=== PATIENT | female | born 1980 | race African-American/Black ===

== ENCOUNTER 2018-03-05 16:56 | Emergency (ER) | payer OTHER ==
[~2018-03-05] VITALS: Ht 157.5 cm; Wt 80.9 kg
[~2018-03-05 16:56] MED LIST: PRENTAB26 PO
[2018-03-05 17:20] VITALS: TEMP 36.6; Ht 157.5 cm; Wt 80.9 kg
[2018-03-05] MEDS ORDERED: KETOROLAC TROMETHAMINE 30 MG/ML VIAL IV STA (18:03)
[2018-03-05] MEDS ORDERED: ONDANSETRON INJ 2 MG/ML 2 ML VIAL IV STA (18:03)
[2018-03-05] MEDS ORDERED: SODIUM CHLORIDE 0.9% 1000ML 1,000 ML IV STA (18:03)
[2018-03-05] MEDS ORDERED: ALBUTEROL 0.083% NEBU SOLN 3 ML VIAL INH STA (18:03)
[2018-03-05] MEDS ORDERED: TRIMETHOPRIM/POLYMYXIN B OP STA (18:05)
[2018-03-05 18:09] VITALS: O2SAT 100
--- NOTE | 2018-03-05 18:32 | EMERGENCY ROOM VISIT NOTE ---
History Report prepared by Esteban: Flynn Villela Under the Supervision of: Dr. Jim Garcia M.D. First contact with patient: 17:57 Chief Complaint: FLU LIKE SX Stated Complaint: FLU History of Present Illness The patient is a 37 year old female who presents to the Emergency Room with complaints of a constant cough beginning 2.5 weeks ago. She currently rates her discomfort a 9/10 in severity. The patient states she developed a sorethroat and abdominal pain since the onset of her cough. She reports her eyes started hurting today and there was crust on them. The patient notes she still has her appendix and gallbladder. She states her LNMP was two weeks ago. She denies wearing contacts or glasses, a history of eye surgery, taking medications daily , taking ibuprofen, taking Tylenol, the chance of , the possibility of retaining a tampon, vomiting, and diarrhea. Source of History: patient Onset: 2.5 weeks Symptom Intensity: 9/10 Quality: other (cough) Timing: constant Associated Symptoms: + sorethroat, + abdominal pain, No vomiting, No diarrhea Note: Associated symptoms: eye pain with crust Review of Systems See HPI for pertinent positives & negatives. A total of 10 systems reviewed and were otherwise negative. Past Medical & Surgical Medical Problems: (1) Post-dates (2) Term Family History Patient reports no known family medical history. Social History Smoking Status: Current Every Day Smoker Marital Status: Housing Status: lives with family Current/Historical Medications Scheduled Multivit/Min/Iron/Fol Ac/Pren ( Vitamin), 1 TAB PO DAILY Oseltamivir Phosphate (Tamiflu), 75 MG PO BID Allergies Coded Allergies: No Known Allergies (Unverified , 10/24/16) Physical Exam Vital Signs Date Time Temp Pulse Resp B/P (MAP) Pulse Ox O2 Delivery O2 Flow Rate FiO2 03/05/18 20:06 81 16 113/81 99 03/05/18 18:57 79 112/72 89 130/76 87 128/83 03/05/18 18:17 80 03/05/18 18:09 100 Room Air 03/05/18 18:09 100 Room Air 03/05/18 17:20 36.6 89 16 125/82 98 Room Air Physical Exam GENERAL: Awake, alert, well-appearing, in no acute distress HENT: Normocephalic, atraumatic. Oropharynx unremarkable. EYES: Normal conjunctiva. Sclera non-icteric. NECK: Supple. No nuchal rigidity. FROM. No JVD. RESPIRATORY: Clear to auscultation. CARDIAC: Regular rate, normal rhythm. Extremities warm and well perfused. Pulses equal. ABDOMEN: Soft, non-distended. No tenderness to palpation. No rebound or guarding. No masses. RECTAL: Deferred. MUSCULOSKELETAL: Chest examination reveals no tenderness. The back is symmetrical on inspection without obvious abnormality. There is no CVA tenderness to palpation. No joint edema. LOWER EXTREMITIES: Calves are equal size bilaterally and non-tender. No edema. No discoloration. NEURO: Normal sensorium. No sensory or motor deficits noted. SKIN: No rash or jaundice noted. Medical Decision & Procedures ER Provider Diagnostic Interpretation: X-ray results as stated below per interpretation by me and the radiologist: ABDOMEN 2VIEW W/PA CHEST RTN CLINICAL HISTORY: Diffuse abdominal pain COMPARISON STUDY: No previous studies for comparison. FINDINGS: The erect chest reveals no free air. There is no focal pulmonary consolidation. Erect and supine views the abdomen reveal moderate stool within the colon. There are no transition zone to indicate bowel obstruction. There is no pathologic bowel dilatation. There is a 2 mm right pelvic basin calcification, likely representing a phlebolith. There is a small calcification adjacent to the right acetabulum. This is not felt to be acute. IMPRESSION: No evidence of bowel obstruction. No evidence of free air. Electronically signed by: Karan López M.D. 03/05/2018 7:29 PM Dictated Date/Time: 03/05/2018 7:28 PM Laboratory Results 03/05/18 18:30 Red Blood Count 5.00, Mean Corpuscular Volume 86.6, Mean Corpuscular Hemoglobin 28.8, Mean Corpuscular Hemoglobin Concent 33.3, Mean Platelet Volume 10.7, Neutrophils (%) (Auto) 54.2, Lymphocytes (%) (Auto) 34.1, Monocytes (%) (Auto) 9.4, Eosinophils (%) (Auto) 1.9, Basophils (%) (Auto) 0.3, Neutrophils # (Auto) 4.30, Lymphocytes # (Auto) 2.71, Monocytes # (Auto) 0.75, Eosinophils # (Auto) 0.15, Basophils # (Auto) 0.02 03/05/18 18:30 Test 03/05/18 18:30 White Blood Count 7.94 K/uL (4.8-10.8) Red Blood Count 5.00 M/uL (4.2-5.4) Hemoglobin 14.4 g/dL (12.0-16.0) Hematocrit 43.3 % (37-47) Mean Corpuscular Volume 86.6 fL (80-100) Mean Corpuscular Hemoglobin 28.8 pg (25-34) Mean Corpuscular Hemoglobin Concent 33.3 g/dl (32-36) Platelet Count 233 K/uL (130-400) Mean Platelet Volume 10.7 fL (7.4-10.4) Neutrophils (%) (Auto) 54.2 % Lymphocytes (%) (Auto) 34.1 % Monocytes (%) (Auto) 9.4 % Eosinophils (%) (Auto) 1.9 % Basophils (%) (Auto) 0.3 % Neutrophils # (Auto) 4.30 K/uL (1.4-6.5) Lymphocytes # (Auto) 2.71 K/uL (1.2-3.4) Monocytes # (Auto) 0.75 K/uL (0.11-0.59) Eosinophils # (Auto) 0.15 K/uL (0-0.5) Basophils # (Auto) 0.02 K/uL (0-0.2) RDW Standard Deviation 42.0 fL (36.4-46.3) RDW Coefficient of Variation 13.2 % (11.5-14.5) Immature Granulocyte % (Auto) 0.1 % Immature Granulocyte # (Auto) 0.01 K/uL (0.00-0.02) Anion Gap 5.0 mmol/L (3-11) Est Creatinine Clear Calc Drug Dose 73.0 ml/min Estimated GFR () 79.5 Estimated GFR (Non- 68.6 BUN/Creatinine Ratio 15.1 (10-20) Calcium Level 9.3 mg/dl (8.5-10.1) Total Bilirubin 0.5 mg/dl (0.2-1) Direct Bilirubin < 0.1 mg/dl (0-0.2) Aspartate Amino Transf (AST/SGOT) 13 U/L (15-37) Alanine Aminotransferase (ALT/SGPT) 24 U/L (12-78) Alkaline Phosphatase 91 U/L (45-117) Total Protein 8.1 gm/dl (6.4-8.2) Albumin 3.8 gm/dl (3.4-5.0) Thyroid Stimulating Hormone (TSH) 2.200 uIu/ml (0.300-4.500) Monoscreen NEG (NEG) Influenza Type A Antigen Neg for Influ A (NEG) Influenza Type B Antigen POS for Influ B (NEG) Labs reviewed by ED physician. Medications Administered Medications (Trade) Dose Ordered Sig/Lance Route Start Time Stop Time Status Last Admin Dose Admin Ketorolac Tromethamine (Toradol Inj) 30 mg NOW STAT IV 03/05/18 18:03 03/05/18 18:06 DC 03/05/18 18:28 30 MG Sodium Chloride 1,000 ml @ 999 mls/hr Q1H1M STAT IV 03/05/18 18:03 03/05/18 19:03 DC 03/05/18 18:03 999 MLS/HR Albuterol Sulfate (Ventolin 0.083% 2.5MG/3ML Neb) 2.5 mg NOW STAT INH 03/05/18 18:03 03/05/18 18:06 DC 03/05/18 18:29 2.5 MG Ondansetron HCl (Zofran Inj) 4 mg NOW STAT IV 03/05/18 18:03 03/05/18 18:06 DC 03/05/18 18:28 4 MG Polymyxin/ Trimethoprim Sulfate (Polytrim Oph Soln) 1 drops NOW STAT OP 03/05/18 18:05 03/05/18 18:06 DC 03/05/18 18:27 1 DROPS Oseltamivir Phosphate (Tamiflu Cap) 75 mg NOW STAT PO 03/05/18 19:54 03/05/18 19:55 DC 03/05/18 20:01 75 MG ECG Per My Interpretation Indication: SOB/dyspnea Rate (beats per minute): 77 Rhythm: normal sinus Findings: no acute ischemic change, other (No ST elevation, No ST depression) ED Course 1758: Past medical records reviewed. The patient was evaluated in room B10. A complete history and physical examination was performed. 1802: Ordered Zofran Inj 4mg IV, Albuterol Sulfate 2.5mg INH, Sodium Chloride 1000 ml @ 999 mls/hr, Toradol Inj 30mg IV 1804: Polymyxin/Trimethoprim Sulfate 1 drops OP 1950: Upon reexamination the patient is resting comfortably. I discussed results and treatment plan with the patient. She verbalizes agreement and understanding. The patient is ready for discharge when she receives her medication. 1953: Ordered Tamiflu Cap 75mg PO Medical Decision Differential diagnosis: Etiologies such as viral syndrome, otitis, pharyngitis, pneumonia, influenza, meningitis, urinary tract infection, sepsis, bacteremia, as well as others were entertained. This is a 37-year-old female who presents emergency department complaining of multiple symptoms. The patient is positive for lumens for influenza B. She does not have an elevation in her white blood cell count has no evidence of meningitis or encephalitis on examination. Patient was given IV bolus along with Toradol and breathing treatments. I do feel that the patient is well enough that she can be safely discharged home for follow-up with a primary care physician. Patient was in agreement with the treatment plan. Medication Reconcilliation Current Medication List: was personally reviewed by me Blood Pressure Screening Patient's blood pressure: Normal blood pressure Blood pressure disposition: Did not require urgent referral Impression Primary Impression: Influenza B Scribe Attestation The scribe's documentation has been prepared under my direction and personally reviewed by me in its entirety. I confirm that the note above accurately reflects all work, treatment, procedures, and medical decision making performed by me. Departure Information Dispostion Home / Self-Care Prescriptions Oseltamivir Phosphate (Tamiflu) 75 Mg Cap 75 MG PO BID, #10 CAP Prov: Jim Garcia MD 03/05/18 Referrals No Doctor, Assigned (PCP) Forms HOME CARE DOCUMENTATION FORM, IMPORTANT VISIT INFORMATION Patient Instructions ED Flu, My [facility], Oseltamivir capsules Additional Instructions Increase fluids next 48 hours Take 600 mg Ibuprofen every 6 hours Take 1000 mg Tylenol every 6 hours You have been examined and treated today on an emergency basis only. This is not a substitute for, or an effort to provide, complete comprehensive medical care. It is impossible to recognize and treat all injuries or illnesses in a single emergency department visit. It is therefore important that you follow up closely with your PCP. Call as soon as possible for an appointment. Thank you for your time and consideration. I look forward to speaking with you again soon. Please don't hesitate to call us if you have any questions.
[2018-03-05 18:57] LABS: BASO % 0.3 %; BASO ABS # 0.02 K/uL (0-0.2); EOS % 1.9 %; EOS ABS # 0.15 K/uL (0-0.5); HEMATOCRIT 43.3 % (37-47); HEMOGLOBIN 14.4 g/dL (12.0-16.0); IG# 0.01 K/uL (0.00-0.02); LYMPH % 34.1 %; LYMPH ABS # 2.71 K/uL (1.2-3.4); MEAN CELL VOLUME 86.6 fL (80-100); MEAN CORPUSCULAR HEMOGLOBIN 28.8 pg (25-34); MEAN CORPUSCULAR HGB CONC 33.3 g/dl (32-36); MEAN PLATELET VOLUME 10.7 fL (7.4-10.4); MONO % 9.4 %; MONO ABS # 0.75 K/uL (0.11-0.59); NEUT % 54.2 %; PLATELET COUNT 233 K/uL (130-400); RED CELL DISTRIBUTION WIDTH CV 13.2 % (11.5-14.5); WHITE BLOOD COUNT 7.94 K/uL (4.8-10.8)
[2018-03-05 19:29] LABS: ALBUMIN 3.8 gm/dl (3.4-5.0); ALT/SGPT 24 U/L (12-78); AST/SGOT 13 U/L (15-37); BLOOD UREA NITROGEN 16 mg/dl (7-18); CALCIUM 9.3 mg/dl (8.5-10.1); CARBON DIOXIDE 27 mmol/L (21-32); CREATININE 1.04 mg/dl (0.60-1.20); GLUCOSE 77 mg/dl (70-99); POTASSIUM 3.6 mmol/L (3.5-5.1); SODIUM 137 mmol/L (136-145)
--- NOTE | 2018-03-05 19:30 | DIAGNOSTIC IMAGING REPORT ---
ABDOMEN 2VIEW W/PA CHEST RTN CLINICAL HISTORY: Diffuse abdominal pain COMPARISON STUDY: No previous studies for comparison. FINDINGS: The erect chest reveals no free air. There is no focal pulmonary consolidation. Erect and supine views the abdomen reveal moderate stool within the colon. There are no transition zone to indicate bowel obstruction. There is no pathologic bowel dilatation. There is a 2 mm right pelvic basin calcification, likely representing a phlebolith. There is a small calcification adjacent to the right acetabulum. This is not felt to be acute. IMPRESSION: No evidence of bowel obstruction. No evidence of free air. Electronically signed by: Karan López M.D. 03/05/2018 7:29 PM Dictated Date/Time: 03/05/2018 7:28 PM
[2018-03-05 19:40] LABS: ALKALINE PHOSPHATASE 91 U/L (45-117); TOTAL PROTEIN 8.1 gm/dl (6.4-8.2)
[2018-03-05 19:46] LABS: INFLUENZA B ANTIGEN POS for Influ B (NEG)
[2018-03-05] MEDS ORDERED: OSELTAMIVIR PHOSPHATE 75 MG CAP PO STA (19:54)
[2018-03-05] MEDS ORDERED: OSEL75CA23 PO (19:58)
[2018-03-05 20:06] VITALS: BP 113/81; PULSE 81; O2SAT 99
== END 2018-03-05 20:07 | disposition home or self-care (01) ==
LOC: C.EDB 16:57
DX: J10.1 Influenza due to other identified influenza virus with other respiratory manifestations (principal); F17.200 Nicotine dependence, unspecified, uncomplicated

== ENCOUNTER → 2018-04-07 | Outpatient (CLI) | payer OTHER ==
[~2018-04-07] MED LIST changes: +OPTIRAY 320 IV PRN; +OSEL75CA23 PO
--- NOTE | 2018-04-07 11:02 | DIAGNOSTIC IMAGING REPORT ---
(CHEST FOR PE) ANGIO WITH CT DOSE: 520.43 mGy.cm HISTORY: Chest pain elevated d-dimer. TECHNIQUE: Multiaxial CT images of the chest were performed following the intravenous administration of contrast to evaluate the pulmonary arteries. Maximal intensity projection images were also obtained. A dose lowering technique was utilized adhering to the principles of ALARA. COMPARISON STUDY: None. FINDINGS: The thoracic aorta is normal in course and caliber. There is no significant mediastinal or hilar adenopathy. The pulmonary vasculature enhances uniformly. There are no significant filling defects. Lungs are considered clear. There are no focal infiltrative changes. There are several small reactive axillary nodes bilaterally. No evidence pneumothorax. There are findings of mild hepatomegaly. IMPRESSION: 1. Study is negative for pulmonary embolus. 2. Lungs are clear. 3. Mild hepatomegaly. The above report was generated using voice recognition software. It may contain grammatical, syntax or spelling errors. Electronically signed by: Devendra Alicea M.D. 04/07/2018 11:01 AM Dictated Date/Time: 04/07/2018 10:57 AM
== END | disposition home or self-care (01) ==
LOC: C.CTS 10:35
PROVIDERS: ATTEND Physician Assistant
DX: R79.89 Other specified abnormal findings of blood chemistry (principal); R07.9 Chest pain, unspecified